=== PATIENT | female | born 1975 | race Caucasian/White ===

== ENCOUNTER 2021-03-21 00:15 | Day surgery (SDC) | payer BC, SELFPAY ==
[2021-03-11 15:06] VITALS: BMI 53.1
[2021-03-21] VITALS (14 sets, daily range): BP systolic 133–148; BP diastolic 78–98; PULSE 58–72; RESP 14–20; TEMP 36.2; O2SAT 92–99
--- NOTE | 2021-03-21 10:22 | PM.HPGS ---
History of Present Illness History of Present Illness Consent: Risks, benefits, and alternatives have been discussed and questions answered. Patient agrees to proceed with procedure. Chief complaint: stress incontinence Narrative: Mehreen Christianson is a 45 year old female with complaints of leaking urine for a while with laughing and activity Review of Systems Review of Systems: Narrative: negative All systems reviewed & are unremarkable except as noted in HPI and below PMFSH Past Medical History Medical History (Updated 03/21/21 @ 10:27 by Nomi Hammond MD) GSI (genuine stress incontinence), female Social History Social History Smoking packs per day: 1 Smoking cigarettes per day: 20.0 Years smoked: 20 Smoking pack-years: 20.00 Smoking status: Former smoker Tobacco type: cigarettes Additional smoking assessment comments: QUIT 2011 Spiritual care concerns: No Meds Home Medications and Allergies Home Medications Medication Instructions Recorded Confirmed Type buspirone 15 mg PO BID 03/11/21 03/11/21 History cetirizine [Zyrtec] 10 mg PO DAILY 03/11/21 03/11/21 History citalopram 40 mg PO DAILY 03/11/21 03/11/21 History estradiol 1 mg PO DAILY 03/11/21 03/11/21 History zolpidem 5 mg PO HS 03/11/21 03/11/21 History Allergies Allergy/AdvReac Type Severity Reaction Status Date / Time erythromycin base Allergy Hives Verified 03/11/21 15:03 Sulfa (Sulfonamide Allergy Hives Verified 03/11/21 15:03 Antibiotics) Exam Const: General: cooperative Resp: Auscultation: clear to auscultation bilaterally Cardio: Rate: regular rate Rhythm: regular rhythm GI: Auscultation: normal bowel sounds Assessment and Plan Assessment and plan (1) GSI (genuine stress incontinence), female: Code(s): N39.3 - Stress incontinence (female) (male) Status: Acute Assessment and Plan: scheduled for a Transobturator taping with cystoscopy. Risk and benefits reviewed in detail with patient.
[2021-03-21] MEDS: LACTATED RINGERS 1,000 ML 30 ML IV CONT ×2 (10:44→12:49)
[2021-03-21] MEDS: ACETAMINOPHEN 500 MG TABLET 1000 MG PO (10:49)
--- NOTE | 2021-03-21 10:49 | WPDANESEPPF ---
Anes - Initial Pre Proc Eval Procedure: Operation Date: 03/21/21 12:00 Proposed Procedures p Possible Anterior Repair, - Nomi Hammond MD s Trans Obturator Taping - Nomi Hammond MD Date/Time: 03/21/21 10:49 Surgeon: Nomi Hammond MD Pre Op Diagnosis: stress incontinence Patient Data Age: 45 Gender: F Height: 1.6 m Weight: 136.2 kg Allergies Allergy/AdvReac Type Severity Reaction Status Date / Time erythromycin base Allergy Intermediate Hives Verified 03/21/21 10:40 Sulfa (Sulfonamide Allergy Intermediate Hives Verified 03/21/21 10:40 Antibiotics) Home Medications Medication Instructions Recorded Confirmed Type buspirone 15 mg PO BID 03/11/21 03/21/21 History cetirizine [Zyrtec] 10 mg PO DAILY 03/11/21 03/21/21 History citalopram 40 mg PO DAILY 03/11/21 03/21/21 History estradiol 1 mg PO DAILY 03/11/21 03/21/21 History zolpidem 5 mg PO HS 03/11/21 03/21/21 History Patient hx anesthesia problems: post op nausea/vomiting Family hx anesthesia problems: none PMFSH Past Medical History Medical History (Updated 03/21/21 @ 10:27 by Nomi Hammond MD) GSI (genuine stress incontinence), female Social History Social History Smoking packs per day: 1 Smoking cigarettes per day: 20.0 Years smoked: 20 Smoking pack-years: 20.00 Smoking status: Former smoker Tobacco type: cigarettes Additional smoking assessment comments: QUIT 2011 Spiritual care concerns: No Anes - Eval Final PreProcedure Day of Procedure 03/21/21 10:49 Patient weight: super morbidly obese Heart: regular rate and rhythm Lungs: clear to auscultation Airway: Mallampati scale class III Neurological: alert and oriented Last oral intake: >/= 8 hours ASA classification: III Emergent: no Anesthetic plan: proceed Anesthesia type and monitoring: general LMA and standard monitoring Informed Consent: The patient's anesthetic plan and its attendant risks and benefits were discussed with the patient/family/POA. Questions were solicited and answers provided to the satisfaction of the patient/family/POA.
--- NOTE | 2021-03-21 10:50 | WPDHPUPDATE1 ---
History and Physical Update Update Date/Time: 03/21/21 10:50 History and Physical has been reviewed, including an updated exam of the patient. There are NO changes in the patient's condition. Risks, benefits, and alternatives have been discussed and questions answered. Patient agrees to proceed with procedure.
[2021-03-21] MEDS: KETOROLAC 15 MG/ML VIAL (*BKC) IV PUSH (10:51)
[2021-03-21] MEDS: SCOPOLAMINE 1.5 MG PATCH TRANSDERM (10:53)
[2021-03-21] MEDS: ceFAZolin 3 GM/D5W 100 ML 100 ML IVPB (10:54)
[2021-03-21] MEDS: GENTAMICIN SULFATE INJ 430 MG in DEXTROSE 5% 100 ML 100 MG IVPB (11:12)
[2021-03-21] MEDS: LIDO 1%/EPINEPHRINE/PF 1:200,000 30 ML VIAL 10 ML XX (11:27)
[2021-03-21] MEDS: diphenhydrAMINE HCl INJ 50 MG/ML VIAL 12.5 MG IV PUSH ×2 (12:15→12:33)
[2021-03-21] MEDS: HALOPERIDOL LACTATE 5 MG/ML VIAL IV PUSH (13:01)
--- NOTE | 2021-03-21 13:56 | SUR.PHASEI ---
PT MOVED TO RECLINER WITH MIN ASSISTANCE. DENIED INCREASE IN NAUSEA. NO EMESIS.
--- NOTE | 2021-03-21 14:50 | W.PM.PROC2 ---
Procedure Note - Detailed Date of Procedure 03/21/21 Pre-op Diagnosis stress incontinence Post-op Diagnosis same Procedure Performed Transobturator taping with cystoscopy Surgeon Nomi Hammond MD Anesthesia general Findings intact bladder and urthera with bilateral ureter jets. Description of Procedure Patient was taken to the operating room and placed in a dorsal lithotomy position. The patient was prepared and draped in a normal sterile fashion. Eric catheter was placed into the bladder and the bladder was drained for 100cc. 2 Allis clamps were placed along the anterior vaginal wall beginning 1cm below the urethra and 3cm apart vertically a 2cm incision was made between Allis clamps on anterior vaginal mucosa in the periurethral tissue was dissected with the Metzenbaum scissors and blunt dissection to the level of the pubic bone on either side the midline. The obturator foramen on the right portions of the vagina well palpated bilaterally and injected with 1% lidocaine with epinephrine. And marked with a sterile marker. Stab incision was made in both areas. The obturator device hook was then introduced through the outer obturator foramen through the membrane entering alongside the bladder and urethra pushing the bladder and urethra out of the way and exiting through the vagina. The same procedure occurred on the left side. Cystoscope was performed with the 70 degree scope and the bladder dome was noted the posterior portion of the bladder with no visual suture noted. the obturator devices were manipulated and no areas of punctation were noted in the bladder garcia bilaterally. And there were bilateral ureteral jets noted with an intact urethra. The cystoscope was removed. The vaginal taping was attached to the obturator removed and pulled through under proper tension with spacing with Lawson scissors. the vaginal mucosa was then closed with 2 0 Vicryl suture in a running locked fashion. The stab wound incisions were covered with surgical glue. Estimated Blood Loss -50.0 Urine Output -50.0 Drains Yes Packing No Pathology none sent Complications None Condition stable Disposition PACU
== END 2021-03-21 15:18 | disposition home or self-care (01) ==
PROVIDERS: PCP Nurse Practitioner Family; Visit Provider Obstetrics & Gynecology
PROC: (CPT 57288; 2021-03-21 12:00)
DX: N39.3 Stress incontinence (female) (male) (principal); Z87.891 Personal history of nicotine dependence; E66.01 Morbid (severe) obesity due to excess calories; Z68.43 Body mass index [BMI] 50.0-59.9, adult
CPT/HCPCS: 57288; A9270; C1771; J0690; J1100; J1200; J1580; J1630; J1885; J2250; J2405; J2704; J3010; J7030; J7120

== ENCOUNTER 2021-05-26 19:10 | Emergency (ER) | payer BC, SELFPAY ==
[2021-05-26 19:19] VITALS: BP 168/109; PULSE 97; RESP 16; TEMP 36.6; O2SAT 99
--- NOTE | 2021-05-26 19:49 | ED.FEMALEGU ---
HPI - Female Genitourinary General Chief complaint: Urogenital-Female Stated complaint: POS UTI Time Seen by Provider: 05/26/21 19:39 Source: patient and RN notes reviewed Mode of arrival: ambulatory Limitations: no limitations History of Present Illness HPI Narrative: Patient presents today complaining of gross hematuria at home starting this morning. Denies hematuria, frequency, abdominal pain, back pain. Patient had a fever up to 102 on and off this week and had a negative Covid test. She also had a cough to accompany this. She does not currently have a fever. She had a bladder mesh surgery approximately 2 months ago. Related Data Home Medications Medication Instructions Recorded Confirmed buspirone 15 mg PO BID 03/11/21 03/21/21 cetirizine [Zyrtec] 10 mg PO DAILY 03/11/21 03/21/21 citalopram 40 mg PO DAILY 03/11/21 03/21/21 estradiol 1 mg PO DAILY 03/11/21 03/21/21 zolpidem 5 mg PO HS 03/11/21 03/21/21 Allergies Allergy/AdvReac Type Severity Reaction Status Date / Time erythromycin base Allergy Intermediate Hives Verified 03/21/21 10:40 Sulfa (Sulfonamide Allergy Intermediate Hives Verified 03/21/21 10:40 Antibiotics) Rcqggrv-Pro-Zlz Reductase Allergy Muscle Verified 05/26/21 19:50 Inhibitor Spasms Review of Systems Review of Systems: CONSTITUTIONAL: Denies body aches, fever, chills, or sweats. EYES: Denies visual changes, redness, or discharge. ENT: Denies rhinorrhea, congestion, sore throat, or otalgia. CARDIOVASCULAR: Denies chest pain, palpitations, or edema. RESPIRATORY: Denies cough or dyspnea. GASTROINTESTINAL: Denies abdominal pain, nausea, vomiting, or diarrhea. GENITOURINARY: Denies dysuria. + Hematuria SKIN: Denies rash, itching, or wounds. MUSCULOSKELETAL: Denies back pain, joint pain, or myalgia. NEUROLOGIC: Denies headache, numbness, tingling, or weakness. PSYCH: Denies depression or anxiety. [facility] Past Medical History Medical History (Updated 05/26/21 @ 19:51 by Elise Kwong, AIRCRA[employer] MAINTENA[employer]CE ENG[employer], BC) GSI (genuine stress incontinence), female Social History Social History Smoking packs per day: 1 Smoking cigarettes per day: 20.0 Years smoked: 20 Smoking pack-years: 20.00 Smoking status: Former smoker Tobacco type: cigarettes Additional smoking assessment comments: QUIT 2011 Spiritual care concerns: No Comments At time of signature, I have reviewed and agree with nursing past medical, surgical, social and family history unless otherwise noted. Please see nursing chart for further information. There is no relevant family history pertinent to the presenting complaint Exam Narrative: GENERAL: Well-appearing, well-nourished, and in no acute distress. HEAD: Normocephalic, atraumatic. EYES: EOMI. No redness or drainage. Conjunctivae normal. ENT: Mucous membranes pink and moist. NECK: Normal AROM. CHEST: No respiratory distress. Clear to auscultation. HEART: Regular rate and rhythm. No murmur appreciated. Normal peripheral pulses. ABDOMEN: Soft, nondistended, normal active bowel sounds.+ Mild suprapubic tenderness.-CVAT MUSCULOSKELETAL: No bony tenderness. EXTREMITIES: Normal range of motion. No edema. SKIN: Warm, dry, no rash. Capillary refill normal. Normal skin turgor. NEURO: No focal deficits. Alert and oriented x3. Gait steady. PSYCH: Normal affect. No signs of depression or anxiety. Course Vital Signs Vital signs: Vital Signs Temperature 97.8 F 05/26/21 19:19 Pulse Rate 97 05/26/21 19:19 Respiratory Rate 16 05/26/21 19:19 Blood Pressure 168/109 H 05/26/21 19:19 Pulse Oximetry 99 05/26/21 19:19 Temperature 97.8 F 05/26/21 19:19 Pulse Rate 97 05/26/21 19:19 Respiratory Rate 16 05/26/21 19:19 Blood Pressure 168/109 H 05/26/21 19:19 Pulse Oximetry 99 05/26/21 19:19 Reviewed. Pt has been instructed to follow up with her PCP regarding her elevated blood pressure today.
== END 2021-05-26 19:52 | disposition home or self-care (01) ==
PROVIDERS: Emergency Provider Nurse Practitioner; PCP Nurse Practitioner Family
DX: N30.01 Acute cystitis with hematuria (principal); N80.9 Endometriosis, unspecified
CPT/HCPCS: 81003; 87086; 99213; G0463

== ENCOUNTER 2021-05-27 14:16 | Emergency (ER) | payer BC, SELFPAY ==
[2021-05-27 14:25] VITALS: BP 132/82; PULSE 72; RESP 16; TEMP 36.2; O2SAT 100
--- NOTE | 2021-05-27 14:35 | ED.GENADULT ---
HPI - General Adult General Chief complaint: GI Bleed Stated complaint: rectal bleeding Source: patient and family (Spouse) Mode of arrival: ambulatory Limitations: no limitations Related Data Home Medications Medication Instructions Recorded Confirmed buspirone 15 mg PO BID 03/11/21 03/21/21 cetirizine [Zyrtec] 10 mg PO DAILY 03/11/21 03/21/21 citalopram 40 mg PO DAILY 03/11/21 03/21/21 estradiol 1 mg PO DAILY 03/11/21 03/21/21 zolpidem 5 mg PO HS 03/11/21 03/21/21 Allergies Allergy/AdvReac Type Severity Reaction Status Date / Time erythromycin base Allergy Intermediate Hives Verified 03/21/21 10:40 Sulfa (Sulfonamide Allergy Intermediate Hives Verified 03/21/21 10:40 Antibiotics) Lcqevkd-Tle-Zfg Reductase Allergy Muscle Verified 05/26/21 19:50 Inhibitor Spasms Review of Systems Review of Systems: Denies past abdominal medical history. Pertinent negatives fever, chills, sweats, malaise, poor p.o. intake, change in appetite, recent weight loss, lymphadenopathy, headache, sore throat, dizziness, LOC, urinary sxs, back/flank pain, extremity paresthesias, nausea, vomiting, diarrhea, constipation, belching, bloating, dry mouth, heartburn, jaundice, vomiting blood, and testicular pain. [facility] Past Medical History Medical History (Updated 05/27/21 @ 14:37 by CARLOS Sinha, ) Anxiety Depression GSI (genuine stress incontinence), female Seasonal allergies UTI (urinary tract infection) due to Enterococcus Social History Social History Smoking packs per day: 1 Smoking cigarettes per day: 20.0 Years smoked: 20 Smoking pack-years: 20.00 Smoking status: Former smoker Tobacco type: cigarettes Additional smoking assessment comments: QUIT 2011 Spiritual care concerns: No Course Vital Signs Vital signs: Vital Signs Temperature 97.1 F L 05/27/21 14:25 Pulse Rate 72 05/27/21 14:25 Respiratory Rate 16 05/27/21 14:25 Blood Pressure 132/82 05/27/21 14:25 Pulse Oximetry 100 05/27/21 14:25 Temperature 97.1 F L 05/27/21 14:25 Pulse Rate 72 05/27/21 14:25 Respiratory Rate 16 05/27/21 14:25 Blood Pressure 132/82 05/27/21 14:25 Pulse Oximetry 100 05/27/21 14:25 Medical Decision Making Vital Signs Vital Signs: Vital Signs Temperature 97.1 F L 05/27/21 14:25 Pulse Rate 72 05/27/21 14:25 Respiratory Rate 16 05/27/21 14:25 Blood Pressure 132/82 05/27/21 14:25 Pulse Oximetry 100 05/27/21 14:25 Temperature 97.1 F L 05/27/21 14:25 Pulse Rate 72 05/27/21 14:25 Respiratory Rate 16 05/27/21 14:25 Blood Pressure 132/82 05/27/21 14:25 Pulse Oximetry 100 05/27/21 14:25 Discharge Plan Discharge Prescriptions: No Action nitrofurantoin monohyd/m-cryst [Macrobid] 100 mg capsule 100 mg PO Q12H 7 Days Qty: 14 RF: 0 citalopram 40 mg tablet 40 mg PO DAILY RF: 0 cetirizine [Zyrtec] 10 mg Tablet 10 mg PO DAILY RF: 0 estradiol 1 mg tablet 1 mg PO DAILY RF: 0 zolpidem 5 mg tablet 5 mg PO HS RF: 0 buspirone 15 mg tablet 15 mg PO BID RF: 0 hydrocodone-acetaminophen 5-325 mg tablet 1 tablet PO Q4H PRN (Reason: pain) Qty: 20 RF: 0
--- NOTE | 2021-05-27 14:39 | ED.GENADULT ---
HPI - General Adult General Chief complaint: GI Bleed Stated complaint: rectal bleeding Source: patient and family (spouse) Mode of arrival: ambulatory Limitations: no limitations History of Present Illness HPI narrative: Patient is a 45-year-old female who presents to the urgent care via POV for evaluation of a rectal bleed that began yesterday. She reports 4-5 bloody stools. She initially thought her symptoms were caused from UTI prompting yesterday's visit. She was treated with Macrobid at that time. Symptoms have not improved. Nothing improves or worsens symptoms. She does have history of external hemorrhoids. Denies an abdominal history. Related Data Home Medications Medication Instructions Recorded Confirmed buspirone 15 mg PO BID 03/11/21 03/21/21 cetirizine [Zyrtec] 10 mg PO DAILY 03/11/21 03/21/21 citalopram 40 mg PO DAILY 03/11/21 03/21/21 estradiol 1 mg PO DAILY 03/11/21 03/21/21 zolpidem 5 mg PO HS 03/11/21 03/21/21 Allergies Allergy/AdvReac Type Severity Reaction Status Date / Time erythromycin base Allergy Intermediate Hives Verified 03/21/21 10:40 Sulfa (Sulfonamide Allergy Intermediate Hives Verified 03/21/21 10:40 Antibiotics) Pmbcgcz-Fnj-Fmc Reductase Allergy Muscle Verified 05/26/21 19:50 Inhibitor Spasms Review of Systems Review of Systems: Denies chronic diarrhea, chronic constipation, obesity, straining her bowel movements, sitting for long periods of time on the toilet, anal intercourse, low fiber diet, and . Patient also denies history of internal, and thrombosed hemorrhoids. Pertinent negatives: fever, chills, sweats, change in appetite, poor p.o. intake, recent weight loss, malaise, abdominal pain, nausea, vomiting, diarrhea, belching, bloating, urinary sxs, STD exposure, heartburn, paresthesias, dizziness, headache, hematemesis, anal-genital pruritus, rectal swelling, painful bowel movements, shortness of breath, chest pain, and heart palpitations/murmurs. PMF Past Medical History Medical History Anxiety Depression GSI (genuine stress incontinence), female Seasonal allergies UTI (urinary tract infection) due to Enterococcus Social History Social History Smoking packs per day: 1 Smoking cigarettes per day: 20.0 Years smoked: 20 Smoking pack-years: 20.00 Smoking status: Former smoker Tobacco type: cigarettes Additional smoking assessment comments: QUIT 2011 Spiritual care concerns: No Exam Narrative: GENERAL: Well-appearing, well-nourished, and in no acute distress. HEAD: Normocephalic, atraumatic. NECK: Supple. No lymphadenopathy or nuchal rigidity. CHEST: Lung sounds are clear to auscultation in bilateral lung yeung. No respiratory distress. HEART: Regular rate and rhythm. No murmur, gallop, or rub heard. ABDOMEN: Soft, non-tender, non-distended, normal active bowel sounds in all quadrants. No guarding. No rebound tenderness. No pulsatile or palpable abdominal mass(es). No CVAT. Rectal exam is positive for external hemorrhoids. No evidence of pain, inflammation, or bleeding of external hemorrhoids. : Bladder non-distended, non-tender EXTREMITIES: Normal range of motion. No edema. SKIN: Warm, dry, no rash. No skin color changes. Excellent turgor. NEURO: No focal deficits. Alert and oriented x3. SPECIAL OBSERVATIONS: Smiling. No evidence of discomfort. Course Vital Signs Vital signs: Vital Signs Temperature 97.1 F L 05/27/21 14:25 Pulse Rate 72 05/27/21 14:25 Respiratory Rate 16 05/27/21 14:25 Blood Pressure 132/82 05/27/21 14:25 Pulse Oximetry 100 05/27/21 14:25 Temperature 97.1 F L 05/27/21 14:25 Pulse Rate 72 05/27/21 14:25 Respiratory Rate 16 05/27/21 14:25 Blood Pressure 132/82 05/27/21 14:25 Pulse Oximetry 100 05/27/21 14:25 Due to an elevated blood pressure, I h
== END 2021-05-27 15:03 | disposition short-term general hospital (02) ==
LOC: EXPGLEN 14:18
PROVIDERS: Emergency Provider Nurse Practitioner Family; PCP Nurse Practitioner Family
DX: K92.2 Gastrointestinal hemorrhage, unspecified (principal); F32.9 Major depressive disorder, single episode, unspecified; F41.9 Anxiety disorder, unspecified; Z87.891 Personal history of nicotine dependence
CPT/HCPCS: 99212; G0463

== ENCOUNTER 2021-05-27 15:15 | Emergency (ER) | payer BC, SELFPAY ==
[2021-05-27] VITALS (21 sets, daily range): BP systolic 116–168; BP diastolic 77–105; PULSE 69–84; RESP 16–22; TEMP 36.4; O2SAT 97–100
--- NOTE | ~2021-05-27 | CT_ITS ---
EXAMINATION: CT abdomen pelvis w con DATE: 05/27/2021 17:54 INDICATION: Left lower quadrant abdominal pain. Blood in stool. TECHNIQUE: Computed tomography (CT) of the abdomen and pelvis was performed with 100 mL Omnipaque 350 intravenous contrast. Automated exposure control and iterative reconstruction technique were employe d. The dose-length product was 1502.36 mGy-cm. COMPARISON: None. FINDINGS: The visualized portions of the lung bases demonstrate minimal atelectasis. No pleural effus ion. The heart size is normal. No pericardial effusion. There is a small sliding hiatal hernia. The l iver is normal. There are changes of cholecystectomy. The spleen, pancreas, adrenal glands, and kidne ys are normal. There are no dilated loops of bowel. There are no dilated loops of bowel. There is mil d fat stranding between the sigmoid colon and uterus. The appendix is not visualized. There are no pa thologically enlarged lymph nodes. There is no free intraperitoneal fluid. There is mild thoracolumba r spondylosis. IMPRESSION: 1. Mild fat stranding between the sigmoid colon and uterus, likely chronic diverticulitis. Reviewed, dictated and finalized at location A. IMPRESSION: 1. Mild fat stranding between the sigmoid colon and uterus, likely chronic dive rticulitis.
[2021-05-27 15:44] LABS: INR 0.9; Prothrombin Time 12.5 Seconds (11.1-14.7)
[2021-05-27 15:45] LABS: Partial Thromboplastin Time 32.6 SECONDS (22.3-36.8)
[2021-05-27 15:49] LABS: Basophils Percent Auto 0.5 % (0.2-1.2); Eosinophils Absolute Auto 0.1 K/mm3 (0-0.3); Eosinophils Percent Auto 1.2 % (0-4.4); Hematocrit 39.5 % (37.0-47.0); Hemoglobin 13.2 g/dL (12.0-15.0); Immature Granulocyte Absolute 0.12 K/mm3 (0.00-0.031); Immature Granulocyte Percent A 1.5 % (0-0.5); Lymphocytes Absolute Auto 1.99 K/mm3 (0.9-3.2); Lymphocytes Percent Auto 24.5 % (18.3-44.2); Mean Corpuscular HGB Conc 33.4 g/dl (32-36); Mean Corpuscular Hemoglobin 29.1 pg (26-34); Mean Corpuscular Volume 87.2 fl (80-100); Mean Platelet Volume 9.9 fl (7.4-10.4); Monocytes Absolute Auto 0.6 K/mm3 (0.1-0.6); Monocytes Percent Auto 7.5 % (2.6-8.5); Neutrophils Absolute Auto 5.3 K/mm3 (1.3-6.7); Neutrophils Percent Auto 64.8 % (45.5-73.1); Platelet Count Result 221 k/mm3 (150-375); Red Blood Count 4.53 M/mm3 (4.2-5.4); Red Cell Distribution Width 12.3 % (11.5-14.5); White Blood Count 8.1 K/mm3 (4.5-10.0)
[2021-05-27 15:51] LABS: Alanine Aminotransferase 19 U/L (4-35); Albumin Level 4.3 g/dL (3.5-5.1); Alkaline Phosphatase 97 U/L (38-126); Anion Gap 5 mmol/L (8-16); Aspartate Amino Transferase 30 U/L (14-36); Bilirubin,Total 0.8 mg/dL (0.2-1.3); Blood Urea Nitrogen 9 mg/dL (7-17); Calcium 9.2 mg/dL (8.4-10.2); Carbon Dioxide 24 mmol/L (22-30); Chloride 106 mmol/L (98-107); Estimated CRCL calculation 110 ml/min; Estimated Glomerular Filt Rate > 60; Glucose 98 mg/dL (65-110); Potassium 3.9 mmol/L (3.4-5.0); Sodium 135 mmol/L (137-145)
--- NOTE | 2021-05-27 17:08 | ED.GIBLEED ---
HPI - GI Bleed General Chief complaint: GI Bleed Stated complaint: GI Bleed Time Seen by Provider: 05/27/21 16:44 Source: patient Mode of arrival: ambulatory Limitations: no limitations History of Present Illness HPI Narrative: This is a 45 year old female that presents to the ER for rectal bleeding. Ongoing since yesterday. Does report history of hemorrhoids. Reports some mild left lower quadrant pain. Denies fever, vomiting, or diarrhea. Related Data Home Medications Medication Instructions Recorded Confirmed buspirone 15 mg PO BID 03/11/21 03/21/21 cetirizine [Zyrtec] 10 mg PO DAILY 03/11/21 03/21/21 citalopram 40 mg PO DAILY 03/11/21 03/21/21 estradiol 1 mg PO DAILY 03/11/21 03/21/21 zolpidem 5 mg PO HS 03/11/21 03/21/21 Allergies Allergy/AdvReac Type Severity Reaction Status Date / Time erythromycin base Allergy Intermediate Hives Verified 03/21/21 10:40 Sulfa (Sulfonamide Allergy Intermediate Hives Verified 03/21/21 10:40 Antibiotics) Sxjtotb-Gtn-Zrs Reductase Allergy Muscle Verified 05/26/21 19:50 Inhibitor Spasms Review of Systems Review of Systems: CONSTITUTIONAL: Denies fever GASTROINTESTINAL: Reports abdominal pain. Denies nausea, vomiting, or diarrhea. GENITOURINARY: Denies dysuria All systems reviewed & are unremarkable except as noted in HPI and below PMFSH Past Medical History Medical History Anxiety Depression GSI (genuine stress incontinence), female Seasonal allergies UTI (urinary tract infection) due to Enterococcus Social History Social History Smoking packs per day: 1 Smoking cigarettes per day: 20.0 Years smoked: 20 Smoking pack-years: 20.00 Smoking status: Former smoker Tobacco type: cigarettes Additional smoking assessment comments: QUIT 2012 Spiritual care concerns: No Exam Narrative: GENERAL: Well-appearing, obese, and in no acute distress. HEAD: Normocephalic, atraumatic. EYES: EOMI. CHEST: Clear to auscultation. No respiratory distress. No wheezes rales or rhonchi HEART: Regular rate and rhythm. No murmur heard. Normal peripheral pulses. ABDOMEN: Soft, nondistended, normal active bowel sounds. Tender to palpation in the left lower quadrant, without guarding. No CVA tenderness EXTREMITIES: Normal range of motion. No edema. SKIN: Warm, dry, no rash. NEURO: No focal deficits. Alert and oriented x3. PSYCH: Normal mood and affect Course Vital Signs Vital signs: Vital Signs Temperature 97.6 F 05/27/21 15:17 Pulse Rate 75 05/27/21 15:17 Respiratory Rate 16 05/27/21 15:17 Blood Pressure 168/105 H 05/27/21 15:17 Pulse Oximetry 97 05/27/21 15:17 Temperature 97.6 F 05/27/21 15:17 Pulse Rate 78 05/27/21 19:19 Respiratory Rate 19 05/27/21 19:19 Blood Pressure 130/97 H 05/27/21 19:22 Pulse Oximetry 99 05/27/21 19:19 MDM - GI Bleed MDM Narrative Medical decision making narrative: Patient presents the emergency department for rectal bleeding noted since yesterday. She is afebrile and nontoxic-appearing. Vitals are stable. CBC and metabolic panel without concerning findings CT scan abdomen and pelvis shows mild fat stranding between the sigmoid colon and uterus, likely diverticulitis. Patient will be started on oral antibiotics. She was instructed to follow-up with her primary care doctor. She is stable and felt appropriate for further outpatient evaluation. She was given warnings to return to the ER Lab Data Attestation: I reviewed the patient's lab results. Result diagrams: 05/27/21 15:26 05/27/21 15:26 Labs: Lab Results 05/27/21 05/27/21 05/27/21 Range/Units 15:26 15:26 15:26 WBC 8.1 (4.5-10.0) K/mm3 RBC 4.53 (4.2-5.4) M/mm3 Hgb 13.2 (12.0-15.0) g/dL Hct 39.5 (37.0-47.0) % MCV 87.2 (80-100) fl MCH 29.1 (26-34) pg MCHC 33.4
--- NOTE | 2021-05-27 19:20 | PC.NURSE ---
assumed care of pt at this time. Report from Karen SHARMA.
[2021-05-27] MEDS: AMOXICILLIN/CLAVULANATE K 875-125 MG TAB 1 TABLET PO (20:19)
== END 2021-05-27 20:20 | disposition home or self-care (01) ==
PROVIDERS: Emergency Provider Emergency Medicine; PCP Nurse Practitioner Family
DX: K57.92 Diverticulitis of intestine, part unspecified, without perforation or abscess without bleeding (principal); Z87.891 Personal history of nicotine dependence; F41.9 Anxiety disorder, unspecified; F32.9 Major depressive disorder, single episode, unspecified
CPT/HCPCS: 36415; 74177; 80053; 85025; 85610; 85730; 86850; 86900; 86901; 99284; A9270; Q9967

== ENCOUNTER 2022-04-05 13:38 | Emergency (ER) | payer BC, SELFPAY ==
--- NOTE | ~2022-04-05 | XR_ITS ---
EXAM: XR ribs LT 2V w CXR 2V DATE: 04/05/2022 15:45 HISTORY: left lower rib pain after falling into recycle bin . COMPARISON: None available. FINDINGS: Lungs are clear. Unremarkable cardiomediastinal silhouette. Cholecystectomy clips. Normal m ineralization. No fracture or dislocation. No lytic or blastic lesion. Joint spaces are maintained. N o erosion or periosteal change. Soft tissues within normal limits. IMPRESSION: No acute osseous finding in the left ribs. Reviewed, dictated and finalized at location K.
[2022-04-05 14:23] VITALS: BP 136/80; PULSE 81; RESP 16; TEMP 36.8; O2SAT 99
--- NOTE | 2022-04-05 15:17 | ED.ABDPAIN ---
HPI - Abdominal Pain General Chief Complaint: Abdominal Pain Stated Complaint: left side pain Time Seen by Provider: 04/05/22 15:17 Source: patient, RN notes reviewed and old records reviewed Mode of arrival: ambulatory Limitations: no limitations History of Present Illness HPI narrative: 46-year-old female presents accompanied by spouse to express care with complaints of left lateral abdomen lower rib region discomfort since . She reports they went to put their cardboard in a dumpster and in the process her watch fell in to the dumpster and she leaned over the metal bar trying to get the watch out and has had pain to above area. Patient has no bruising to area or any shortness of breath. patient has palpable pain to area. MD elicited complaint: other (left lateral abdomen and rib region) Onset (ago): day(s) (2) Pain scale (0-10): 5 Treatments prior to arrival: NSAIDs and other (Tylenol) Related Data Home Medications Medication Instructions Recorded Confirmed buspirone 15 mg tablet 15 mg PO BID 03/11/21 03/21/21 cetirizine 10 mg tablet (Zyrtec) 10 mg PO DAILY 03/11/21 03/21/21 citalopram 40 mg tablet 40 mg PO DAILY 03/11/21 03/21/21 estradiol 1 mg tablet 1 mg PO DAILY 03/11/21 03/21/21 zolpidem 5 mg tablet 5 mg PO HS 03/11/21 03/21/21 lisinopril 5 mg tablet tablet 04/05/22 ihdmlkghaglf-Ly-ukqg-minerals 18 tablet PO 04/05/22 mg-0.4 mg tablet omeprazole 10 mg capsule,delayed 10 mg PO DAILY 04/05/22 04/05/22 release Allergies Allergy/AdvReac Type Severity Reaction Status Date / Time erythromycin base Allergy Intermediate Hives Verified 04/05/22 14:15 Sulfa (Sulfonamide Allergy Intermediate Hives Verified 04/05/22 14:15 Antibiotics) Fvvyuuv-XCJ-HiY Reductase Allergy Muscle Verified 04/05/22 14:15 Inhibitor Spasms [Zmwaity-Otn-Azl Reductase Inhibitor] Review of Systems Review of Systems: CONSTITUTIONAL: Denies fever, chills, or sweats. EYES: Denies visual changes, redness, or discharge. ENT: Denies rhinorrhea, congestion, sore throat, or otalgia. CARDIOVASCULAR: Denies chest pain, palpitations, or edema. RESPIRATORY: Denies cough or dyspnea. GASTROINTESTINAL: Positive lateral abdominal pain and the left rib pain, nausea, vomiting, or diarrhea. GENITOURINARY: Denies dysuria or hematuria. SKIN: Denies rash or itching. MUSCULOSKELETAL: Denies back pain, joint pain, or myalgia. NEUROLOGIC: Denies headache, numbness, or weakness. PSYCHIATRIC: Positive history of anxiety or depression. All systems reviewed & are unremarkable except as noted in HPI and below PMFSH Past Medical History Medical History Anxiety Depression GSI (genuine stress incontinence), female Hypertension Seasonal allergies UTI (urinary tract infection) due to Enterococcus Surgical History Surgical History (Updated 04/05/22 @ 15:34 by Estelita Michael NP) H/O: hysterectomy Hx of appendectomy Hx of cholecystectomy Hx of hemorrhoidectomy Social History Social History Smoking packs per day: 1 Smoking cigarettes per day: 20.0 Years smoked: 20 Smoking pack-years: 20.00 Smoking status: Former smoker Tobacco type: cigarettes Additional smoking assessment comments: QUIT 2011 Spiritual care concerns: No Comments At time of signature, agree with nursing past medical, surgical, social and family history. There is no relevant family history pertinent to the presenting complaint Exam Narrative: GENERAL: Well-appearing, well-nourished, avidly obese and in no acute distress. HEAD: Normocephalic, atraumatic. EYES: PERRLA and EOMI. ENT: Nares clear, no rhinorrhea or epistaxis. Mucous membranes moist. TMs normal good light reflex throat pink no lesions or exudates NECK: Supple. No lymphadenopathy CHEST: Clear to auscultation. No respiratory distress. SaO2 99% on room air tender left rib area HE
== END 2022-04-05 16:28 | disposition home or self-care (01) ==
PROVIDERS: Emergency Provider Registered Nurse; PCP Nurse Practitioner Family
DX: S30.1XXA Contusion of abdominal wall, initial encounter (principal); S20.212A Contusion of left front wall of thorax, initial encounter; X50.9XXA Other and unspecified overexertion or strenuous movements or postures, initial encounter; I10 Essential (primary) hypertension; Z87.891 Personal history of nicotine dependence; F41.9 Anxiety disorder, unspecified; F32.A Depression, unspecified
CPT/HCPCS: 71046; 71100; 99213; G0463

== ENCOUNTER → 2022-10-16 14:53 | Outpatient (CLI) | payer BC, SELFPAY ==
--- NOTE | ~2022-10-16 | MM_ITS ---
EXAMINATION: MM screening marci BI w vyette HISTORY: Screening mammogram TECHNIQUE: Craniocaudal and mediolateral oblique 3-D tomosynthesis images were obtained and synthetic 2-D images were generated. CAD analysis was submitted and interpreted. COMPARISON: No prior mammogram is available for comparison at this institution. BREAST PARENCHYMAL COMPOSITION: There are scattered areas of fibroglandular density. FINDINGS: No suspicious mass, calcification, or architectural distortion are identified in either dirk ast to suggest malignancy. IMPRESSION: 1. No mammographic evidence of malignancy. 2. Recommend routine screening mammography in one year. BI-RADS Category 1: Negative Reviewed, dictated and finalized at location A. P TEACHER
== END ==
PROVIDERS: PCP Nurse Practitioner Family; Visit Provider Nurse Practitioner
DX: Z12.31 Encounter for screening mammogram for malignant neoplasm of breast (principal)
CPT/HCPCS: 77063; 77067

== ENCOUNTER 2022-11-06 06:25 | Emergency (ER) | payer BC, SELFPAY ==
--- NOTE | ~2022-11-06 | US_ITS ---
EXAMINATION: US pelvic complete DATE: 11/06/2022 12:40 INDICATION: Vaginal bleeding and pelvic pain, history of hysterectomy TECHNIQUE: Multiple transabdominal and endovaginal sonographic images of the pelvis were obtained. COMPARISON: CT, 05/27/2021 FINDINGS: The uterus is surgically absent. The ovaries are not visualized however no adnexal abnormal ity is seen. There is no free fluid in the pelvis. IMPRESSION: 1. No sonographic correlate for the patient's symptoms. Reviewed, dictated and finalized at location A. INE OPERATOR CANE CUTTER
[2022-11-06 06:31] VITALS: BP 114/69; PULSE 76; RESP 17; TEMP 36.6; O2SAT 98
[2022-11-06 09:32] VITALS: BP 142/93; PULSE 78; RESP 14; TEMP 36.2; O2SAT 100
--- NOTE | 2022-11-06 10:11 | ED.FEMALEGU ---
HPI - Female Genitourinary General Chief complaint: Vaginal Bleeding Stated complaint: vaginal bleeding Time Seen by Provider: 11/06/22 09:49 History of Present Illness HPI Narrative: 47-year-old female with a history of hysterectomy here for evaluation of vaginal bleeding. Patient states that over the past 3 days she has had heavy bleeding that she likens to her menstrual cycle, but she has not had her cycle for 5 years after her hysterectomy. She saw her PERCUSSION TUNER yesterday and had an exam, states that they commented there was a large amount of blood in her vaginal vault but they were unable to find the source of the bleed. She was placed on vaginal estrogen cream and told to come to the ED if she is worse. Patient states that she is having pelvic cramping, continued vaginal bleeding, back pain and dysuria. She denies vigorous intercourse. No fevers, chills, nausea, vomiting. Related Data Home Medications Medication Instructions Recorded Confirmed buspirone 15 mg tablet 15 mg PO BID 03/11/21 03/21/21 cetirizine 10 mg tablet (Zyrtec) 10 mg PO DAILY 03/11/21 03/21/21 citalopram 40 mg tablet 40 mg PO DAILY 03/11/21 03/21/21 estradiol 1 mg tablet 1 mg PO DAILY 03/11/21 03/21/21 zolpidem 5 mg tablet 5 mg PO HS 03/11/21 03/21/21 lisinopril 5 mg tablet tablet 04/05/22 ltxgwltsimyq-Wc-ledi-minerals 18 tablet PO 04/05/22 mg-0.4 mg tablet omeprazole 10 mg capsule,delayed 10 mg PO DAILY 04/05/22 04/05/22 release Allergies Allergy/AdvReac Type Severity Reaction Status Date / Time erythromycin base Allergy Intermediate Hives Verified 11/06/22 10:44 Sulfa (Sulfonamide Allergy Intermediate Hives Verified 11/06/22 10:44 Antibiotics) Polzfme-SYH-McB Reductase Allergy Muscle Verified 11/06/22 10:44 Inhibitor Spasms [Ebtpdtp-Kmt-Mcs Reductase Inhibitor] Review of Systems Review of Systems: Gen: Denies fevers or chills Eyes: Denies eye pain or visual change ENT: Denies congestion Respiratory: Denies shortness of breath or cough CV: Denies chest pain or palpitations GI: Denies abdominal pain nausea, emesis or diarrhea : reports vaginal bleeding and dysuria Musculoskeletal: reports back pain Neuro: Denies numbness, tingling, weakness or focal weakness Skin: Denies rash Except as documented, all other systems reviewed and negative PMFSH Past Medical History Medical History Anxiety Depression GSI (genuine stress incontinence), female Hypertension Seasonal allergies UTI (urinary tract infection) due to Enterococcus Surgical History Surgical History H/O: hysterectomy Hx of appendectomy Hx of cholecystectomy Hx of hemorrhoidectomy Social History Social History Smoking packs per day: 1 Smoking cigarettes per day: 20.0 Years smoked: 20 Smoking pack-years: 20.00 Smoking status: Former smoker Tobacco type: cigarettes Additional smoking assessment comments: QUIT 2011 Spiritual care concerns: No Exam Narrative: APPEARANCE: Well appearing, no pain in distress, well-nourished. Head: Normocephalic and atraumatic. EYES: PERRLA/EOMI, conjunctivae clear NOSE: No nasal drainage EARS: External ear normal in appearance THROAT: Oropharynx is clear. Mucous membranes are moist. NECK: Supple. No adenopathy, no masses. RESPIRATORY: Airway patent, respirations nonlabored. Clear to auscultation bilaterally, no rales, rhonchi, wheezing. : scant amount of blood noted in vaginal vault, no brisk bleed or hemorrhage CARDIOVASCULAR: Regular rate and rhythm without murmurs, rubs, or gallops. ABDOMINAL: Normoactive bowel sounds. Soft, nontender, nondistended. No rebound tenderness or guarding. MUSCULOSKELETAL: Extremities are warm and well-perfused. Moves all extremities well. No edema. NEURO: Normal speech. No focal neurologic def
[2022-11-06 10:41] LABS: Appearance Urine Clear (Clear); Bilirubin Urine Negative (Negative); Blood Urine 3+ (Negative); Color Urine Yellow (Yellow); Glucose Urine UA Negative (Negative); Ketones Urine Negative (Negative); Leukocyte Esterase Ur Negative LEU/UL (Negative); Nitrate Urine Negative (Negative); Protein Urine Negative (Negative); Specific Grav Ur >= 1.030 (1.001-1.035); Urobilinogen Urine 0.2 mg/dL (<2.0)
[2022-11-06] MEDS: KETOROLAC 15 MG/ML VIAL (*BKC) IV PUSH (10:45)
[2022-11-06 10:49] LABS: Bacteria Urine Trace /hpf; Mucus Urine Few /lpf; Squamous Epithelial Cell Urine Moderate /hpf (Few); WBC Urine 0-3 /hpf
[2022-11-06 10:50] LABS: Basophils Percent Auto 0.4 % (0.2-1.2); Eosinophils Absolute Auto 0.1 K/mm3 (0-0.3); Eosinophils Percent Auto 1.4 % (0-4.4); Hematocrit 38.7 % (37.0-47.0); Hemoglobin 13.2 g/dL (12.0-15.0); Immature Granulocyte Absolute 0.02 K/mm3 (0.00-0.031); Immature Granulocyte Percent A 0.3 % (0-0.5); Lymphocytes Absolute Auto 2.26 K/mm3 (0.9-3.2); Lymphocytes Percent Auto 32.4 % (18.3-44.2); Mean Corpuscular HGB Conc 34.1 g/dl (32-36); Mean Corpuscular Hemoglobin 29.3 pg (26-34); Mean Corpuscular Volume 85.8 fl (80-100); Mean Platelet Volume 10.1 fl (7.4-10.4); Monocytes Absolute Auto 0.4 K/mm3 (0.1-0.6); Monocytes Percent Auto 5.6 % (2.6-8.5); Neutrophils Absolute Auto 4.2 K/mm3 (1.3-6.7); Neutrophils Percent Auto 59.9 % (45.5-73.1); Platelet Count Result 220 k/mm3 (150-375); Red Blood Count 4.51 M/mm3 (4.2-5.4); Red Cell Distribution Width 12.4 % (11.5-14.5)
[2022-11-06 10:53] LABS: Alanine Aminotransferase 19 U/L (6-35); Albumin Level 4.6 g/dL (3.5-5.1); Alkaline Phosphatase 94 U/L (38-126); Anion Gap 7 mmol/L (8-16); Aspartate Amino Transferase 21 U/L (14-36); Bilirubin,Total 0.7 mg/dL (0.2-1.3); Blood Urea Nitrogen 11 mg/dL (7-17); Calcium 8.6 mg/dL (8.4-10.2); Carbon Dioxide 22 mmol/L (22-30); Chloride 107 mmol/L (98-107); Estimated Glomerular Filt Rate > 60; Glucose 91 mg/dL (65-110); Potassium 3.9 mmol/L (3.4-5.0); Sodium 136 mmol/L (137-145)
[2022-11-06 10:54] LABS: Prothrombin Time 12.5 Seconds (11.1-14.7)
[2022-11-06 10:55] LABS: Partial Thromboplastin Time 32.3 SECONDS (22.3-36.8)
[2022-11-06 11:03] LABS: Add Urine Microscopic? YES
--- NOTE | 2022-11-06 11:05 | PC.NURSE ---
Report received from Malgorzata SHARMA at this time including history and physical and plan of car
--- NOTE | 2022-11-06 11:45 | PC.NURSE ---
Spoke to [facility]. Patient needs full bladder for ultrasound. Per Ana KENDRICK, patient given water to drink at this time. 1 liter NS also ordered for patient
[2022-11-06] MEDS: SODIUM CHLORIDE 0.9% IV 1,000 ML 999 ML IV CONT (11:54)
== END 2022-11-06 13:48 | disposition home or self-care (01) ==
PROVIDERS: Emergency Provider Physician Assistant; PCP Nurse Practitioner Family
DX: N93.9 Abnormal uterine and vaginal bleeding, unspecified (principal); I10 Essential (primary) hypertension; F41.9 Anxiety disorder, unspecified; F32.A Depression, unspecified; Z90.710 Acquired absence of both cervix and uterus; Z87.440 Personal history of urinary (tract) infections
CPT/HCPCS: 36415; 76856; 80053; 81001; 85025; 85610; 85730; 96361; 96374; 99284; J1885; J7030

== ENCOUNTER 2023-01-05 01:49 | Day surgery (SDC) | payer BC, SELFPAY ==
[2022-12-30 13:06] VITALS: BMI 53.1
--- NOTE | 2022-12-30 13:10 | PC.NURSE ---
Report to the Outpatient Waiting Room, entrance under the green pavilion located off [facility], at time 1130 on date 01/05/23. Planned Procedure Time: 1330. Time changes happen often and if your time is changed the preop area will call you the afternoon before. - You and your visitor will be asked to self-screen and do not enter if you have any COVID symptoms. - A mask is optional within the hospital at this time. Patients may have clear liquids (water, carbonated beverages, clear teas, apple juice) until 3 hours prior to surgery with a maximum of 20 ounces. - No food from midnight until time of surgery Take the following medications with a SIP of water the morning of surgery: WELLBUTRIN, BUSPIRONE, CITALOPRAM DO NOT STOP ANY OF YOUR OTHER PRESCRIPTION MEDICATIONS PRIOR TO SURGERY EXCEPT THE FOLLOWING Medications to discontinue per physician: VITAMINS/SUPPLEMENTS Date to take last dose: 01/01/23 Please no make-up, nail icelandic, hairspray, perfume, deodorant, or body powder the day of surgery. No jewelry (including any body piercings) or valuables the day of surgery, leave them at home. Please take a shower or bath the night before, or the morning of, surgery with an antibacterial soap. Wear comfortable, loose fitting clothing. - Jewelry must be removed prior to entering the operating room. Rings and piercings that are not removed may be cut off. - The hospital will not accept responsibility for valuables. - Please leave all valuables, including medications, at home the day of surgery. If you are going home after surgery, a licensed bookmobile driver must drive you home. - NO public transportation without another adult if you receive anesthesia. - We recommend that an adult stay with you for 24 hours following discharge. - We also recommend that you do not drive, make important decision, drink alcoholic beverages, or take any drugs that were not prescribed by your health care provider for at least 24 hours after your discharge time. Follow any additional instructions given to you from your surgeon. If you or anyone in your household have experienced Covid symptoms in the past week, please notify your surgeon or the nurse liaison at the phone number below for possible testing. Telephone instructions given to PT - ABHIJIT BRASHER and asked if any additional questions and then verbalized understanding. Patient advised to call surgeon office or pre surgery nurse liaison [phone] if any additional questions.
--- NOTE | 2023-01-05 08:13 | WPDHPUPDATE1 ---
History and Physical Update Update Date/Time: 01/05/23 08:13 History and Physical has been reviewed, including an updated exam of the patient. There are NO changes in the patient's condition. Risks, benefits, and alternatives have been discussed and questions answered. Patient agrees to proceed with procedure.
--- NOTE | 2023-01-05 08:14 | PM.HPGS ---
History of Present Illness History of Present Illness Consent: Risks, benefits, and alternatives have been discussed and questions answered. Patient agrees to proceed with procedure. Chief complaint: Granulation tissue Narrative: Mehreen Christianson is a 47 year old female s/p vaginal hysterectomy with bilateral salpingo-oophorectomy in 2017 by previous provider who presented in October with complaint of vaginal bleeding. On examination, the patient was noted to have granulation tear ear deep at the anterior cuff. Silver nitrate was tried on 2 separate occasions without success. It was recommended to undergo exam under anesthesia with removal granulation tissue. Risks of recurrence, bleeding, injury to the surrounding vaginal tissue was reviewed. Patient voiced understanding and agreed to proceed. Review of Systems Review of Systems: not repeated day of surgery; patient states no changes in status PMFSH Past Medical History Medical History (Updated 01/05/23 @ 08:21 by Madhuri Nunez MD) Anxiety Depression GSI (genuine stress incontinence), female Hypertension Seasonal allergies UTI (urinary tract infection) due to Enterococcus Surgical History Surgical History (Updated 01/05/23 @ 08:19 by Madhuri Nunez MD) H/O: hysterectomy TVH-BSO History of bladder suspension procedure transobturator taping 2020 History of laparoscopy for endometriosis Hx of appendectomy Hx of cholecystectomy Hx of hemorrhoidectomy Social History Social History Smoking packs per day: 1 Smoking cigarettes per day: 20.0 Years smoked: 20 Smoking pack-years: 20.00 Smoking status: Former smoker Tobacco type: cigarettes Smoking end date: 09/21/09 Additional smoking assessment comments: QUIT 2011 Alcohol intake: never Substance use: never Substance use type: does not use Living arrangements: with family Spiritual care concerns: No Meds Home Medications and Allergies Home Medications Medication Instructions Recorded Confirmed Type buspirone 15 mg tablet 15 mg PO BID 03/11/21 12/30/22 History cetirizine 10 mg tablet (Zyrtec) 10 mg PO DAILY 03/11/21 12/30/22 History citalopram 40 mg tablet 40 mg PO DAILY 03/11/21 12/30/22 History estradiol 1 mg tablet 1 mg PO DAILY 03/11/21 12/30/22 History zolpidem 5 mg tablet 5 mg PO HS 03/11/21 12/30/22 History lisinopril 5 mg tablet 1 tablet PO DAILY 04/05/22 12/30/22 History xoormeiezqac-Qj-yuns-minerals 18 1 tablet PO DAILY 04/05/22 12/30/22 History mg-0.4 mg tablet omeprazole 10 mg capsule,delayed 10 mg PO DAILY 04/05/22 12/30/22 History release bupropion HCl 300 mg 24 hr tablet, 300 mg PO DAILY 12/30/22 12/30/22 History extended release Allergies Allergy/AdvReac Type Severity Reaction Status Date / Time erythromycin base Allergy Intermediate Hives Verified 12/30/22 13:04 Sulfa (Sulfonamide Allergy Intermediate Hives Verified 12/30/22 13:04 Antibiotics) Bsueffr-VKR-IoJ Reductase Allergy Muscle Verified 12/30/22 13:04 Inhibitor Spasms [Jsbfrfo-Wyz-Vxp Reductase Inhibitor] Exam Const: General: healthy appearing, alert and obese ( BMI of 54) Orientation/consciousness: patient oriented x3 Resp: Effort & Inspection: normal respiratory effort GI: GI Palp: Yes Soft to palpation, No Tenderness to palpation present (GI) and No Palpable mass present : External Female Exam: normal external appearance Speculum Exam - Vagina: vaginal bleeding and other ( using an extra long Stewart speculum granulation tissue anterior) Speculum Exam - Cervix: Cervix absent Bimanual exam- vagina & uterus: uterus absent Neuro: General: patient oriented x3 Assessment and Plan Assessment and plan (1) Granulation tissue: Code(s): L92.9 - Granulomatous disorder of the skin and subcutaneous tissue, unspecified Status: Acute Assessment and Plan: At the vagina
--- NOTE | 2023-01-05 09:02 | WPDANESEPPF ---
Anes - Initial Pre Proc Eval Procedure: Operation Date: 01/05/23 12:30 Proposed Procedures p Excision of Granulation Tissue of Vaginal Cuff - Madhuri Nunez MD Date/Time: 01/05/23 09:02 Surgeon: Madhuri Nunez MD Pre Op Diagnosis: Granulation tissue Patient Data Age: 47 Gender: F Height: 1.6 m Weight: 136.1 kg Allergies Allergy/AdvReac Type Severity Reaction Status Date / Time erythromycin base Allergy Intermediate Hives Verified 01/05/23 11:41 Sulfa (Sulfonamide Allergy Intermediate Hives Verified 01/05/23 11:41 Antibiotics) Apcrfjv-JCA-OrJ Reductase Allergy Muscle Verified 01/05/23 11:41 Inhibitor Spasms [Tgbjgcz-Vzt-Nvw Reductase Inhibitor] Home Medications Medication Instructions Recorded Confirmed Type buspirone 15 mg tablet 15 mg PO BID 03/11/21 01/05/23 History cetirizine 10 mg tablet (Zyrtec) 10 mg PO DAILY 03/11/21 01/05/23 History citalopram 40 mg tablet 40 mg PO DAILY 03/11/21 01/05/23 History estradiol 1 mg tablet 1 mg PO DAILY 03/11/21 01/05/23 History zolpidem 5 mg tablet 5 mg PO HS 03/11/21 01/05/23 History lisinopril 5 mg tablet 1 tablet PO DAILY 04/05/22 01/05/23 History wqlvmkglfeqs-Ei-mxlk-minerals 18 1 tablet PO DAILY 04/05/22 01/05/23 History mg-0.4 mg tablet omeprazole 10 mg capsule,delayed 10 mg PO DAILY 04/05/22 01/05/23 History release bupropion HCl 300 mg 24 hr tablet, 300 mg PO DAILY 12/30/22 01/05/23 History extended release Patient hx anesthesia problems: none Family hx anesthesia problems: none Results Review: All pre-operative results and documents have been reviewed as part of the pre-operative evaluation. [facility] Past Medical History Medical History (Updated 01/05/23 @ 08:21 by Madhuri Nunez MD) Anxiety Depression GSI (genuine stress incontinence), female Hypertension Seasonal allergies UTI (urinary tract infection) due to Enterococcus Surgical History Surgical History (Updated 01/05/23 @ 08:19 by Madhuri Nunez MD) H/O: hysterectomy TVH-BSO History of bladder suspension procedure transobturator taping 2020 History of laparoscopy for endometriosis Hx of appendectomy Hx of cholecystectomy Hx of hemorrhoidectomy Social History Social History Smoking packs per day: 1 Smoking cigarettes per day: 20.0 Years smoked: 20 Smoking pack-years: 20.00 Smoking status: Former smoker Tobacco type: cigarettes Smoking end date: 09/21/09 Additional smoking assessment comments: QUIT 2011 Alcohol intake: never Substance use: never Substance use type: does not use Living arrangements: with family Spiritual care concerns: No Anes - Eval Final PreProcedure Day of Procedure 01/05/23 09:02 Patient weight: super morbidly obese Heart: regular rate and rhythm Lungs: clear to auscultation Airway: Mallampati scale class II Neurological: alert and oriented Last oral intake: >/= 8 hours ASA classification: III Emergent: no Anesthetic plan: proceed Anesthesia type and monitoring: general GIVS and standard monitoring Results Review: All pre-operative results and documents have been reviewed as part of the pre-operative evaluation. Informed Consent: The patient's anesthetic plan and its attendant risks and benefits were discussed with the patient/family/POA. Questions were solicited and answers provided to the satisfaction of the patient/family/POA.
[2023-01-05 11:46] VITALS: BP 134/84; PULSE 77; RESP 20; TEMP 36; O2SAT 99
[2023-01-05] MEDS: LACTATED RINGERS 1,000 ML 30 ML IV CONT (12:03)
[2023-01-05] MEDS: ACETAMINOPHEN 500 MG TABLET 1000 MG PO (12:04)
[2023-01-05] MEDS: LIDO 1%/EPINEPHRINE 1:100,000 50 ML VIAL INFILTRATE (12:26)
--- NOTE | 2023-01-05 12:54 | W.PM.PROC2 ---
Procedure Note - Detailed Date of Procedure 01/05/23 Pre-op Diagnosis Granulation tissue Vaginal bleeding post hysterectomy Post-op Diagnosis Same Procedure Performed cautery of granulation tissue single layer closure of vaginal tissue Surgeon Madhuri Nunez MD Anesthesia MAC and Local Findings very deeply set vaginal cuff; anterior granulation tissue bleeding easily with touch; possible supracervical hysterectomy Description of Procedure The patient is taken to the operating room and placed under anesthesia in the dorsal lithotomy position. The long Graves speculum is used and the area in question is able to be visualized with difficulty. The area is cauterized to remove granulation tissue. Cautery was then used to attempt hemostasis of the underlying tissue. This was not successful. The area was oversewn with 3 0 Vicryl in 3 [id number]-jb-[id number] sutures. Good hemostasis was then noted. While suturing the tissue was noted to be very firm. After the sutures were placed and hemostasis obtained, the speculum was removed. Exam under anesthesia reveals what palpates as a cervix. There is no visible os. The patient is then awakened from anesthesia and taken to recovery in stable condition. Sponge, needle, and instrument counts are correct per the OR staff. Estimated Blood Loss 5 Drains No Packing No Pathology None sent Complications No immediate complications Condition Stable Disposition PACU
[2023-01-05 13:00] VITALS: BP 115/68; PULSE 62; RESP 18; O2SAT 100
[2023-01-05 13:25] VITALS: BP 108/61; PULSE 59; RESP 18; O2SAT 96
[2023-01-05 13:50] VITALS: BP 129/84; PULSE 58; RESP 16; O2SAT 98
[2023-01-05 14:14] VITALS: BP 134/91; PULSE 60; RESP 18
== END 2023-01-05 14:20 | disposition home or self-care (01) ==
PROVIDERS: PCP Nurse Practitioner Family; Visit Provider Obstetrics & Gynecology Gynecology
PROC: (CPT 57200; principal; 2023-01-05 12:30)
DX: L92.9 Granulomatous disorder of the skin and subcutaneous tissue, unspecified (principal); N93.9 Abnormal uterine and vaginal bleeding, unspecified; Z90.710 Acquired absence of both cervix and uterus; I10 Essential (primary) hypertension; F32.A Depression, unspecified; F41.9 Anxiety disorder, unspecified; Z87.891 Personal history of nicotine dependence; E66.01 Morbid (severe) obesity due to excess calories; Z68.43 Body mass index [BMI] 50.0-59.9, adult
CPT/HCPCS: 57200; A9270; J2250; J2704; J3010; J7120

== ENCOUNTER 2023-03-22 11:58 | Emergency (ER) | payer BC, SELFPAY ==
[2023-03-22 12:08] VITALS: BP 120/89; PULSE 89; RESP 16; TEMP 36.2; O2SAT 100
--- NOTE | 2023-03-22 13:05 | ED.EXTPRO ---
HPI - Extremity Problem General Chief complaint: Extremity Problem,Nontraumatic Stated complaint: BILAT KNEE PAIN Time Seen by Provider: 03/22/23 13:05 Source: patient, RN notes reviewed and old records reviewed Mode of arrival: ambulatory Limitations: no limitations History of Present Illness HPI Narrative: 47 year old female who presents to express care with complaints of bilateral knee pain with right knee worse.for 1 month duration. Patient reports that she has been exercising on treadmill and using elliptical machine in process of trying to loose weight and is taking Semaglutide injections. Patient does report that she had some Achilles tendonitis about 3 months ago. Patient offered x-ray films of knees as baseline wants to wait at this time.She reports that her knees hurt worse at night and is mainly anterior aspect of knees below knee caps bilaterally. Patient reports that she has been using Voltaren ointment to her knees and taking Diclofenac daily as ordered. with pain not improving and has used ice and heat. MD Complaint: other (bilateral knee pain) Onset (ago): month(s) (1) Location: other (bilateral right > left) Severity scale (1-10): 3 Related Data Home Medications Medication Instructions Recorded Confirmed buspirone 15 mg tablet 15 mg PO BID 03/11/21 03/22/23 cetirizine 10 mg tablet (Zyrtec) 10 mg PO DAILY 03/11/21 03/22/23 estradiol 1 mg tablet 1 mg PO DAILY 03/11/21 03/22/23 zolpidem 5 mg tablet 5 mg PO HS 03/11/21 03/22/23 lisinopril 5 mg tablet 1 tablet PO DAILY 04/05/22 03/22/23 lnlefghcneye-Xv-krkr-minerals 18 1 tablet PO DAILY 04/05/22 03/22/23 mg-0.4 mg tablet omeprazole 10 mg capsule,delayed 10 mg PO DAILY 04/05/22 03/22/23 release bupropion HCl 300 mg 24 hr tablet, 300 mg PO DAILY 12/30/22 03/22/23 extended release diclofenac sodium 75 mg 75 mg PO BID 03/03/23 03/22/23 tablet,delayed release escitalopram oxalate 10 mg tablet 10 mg PO DAILY 03/03/23 03/22/23 estradiol 0.01% (0.1 mg/gram) 1 g vaginal 2XW 03/03/23 03/22/23 vaginal cream magnesium 250 mg tablet 250 mg PO DAILY 03/03/23 03/22/23 semaglutide (weight loss) 0.25 0.25 mg subcut WEEKLY 03/03/23 03/22/23 mg/0.5 mL subcutaneous pen injector (Wegovy) Allergies Allergy/AdvReac Type Severity Reaction Status Date / Time erythromycin base Allergy Intermediate Hives Verified 03/22/23 12:11 Sulfa (Sulfonamide Allergy Intermediate Hives Verified 03/22/23 12:11 Antibiotics) Zaquzpi-AXB-OxF Reductase Allergy Muscle Verified 03/22/23 12:11 Inhibitor Spasms [Xmmfftx-Afw-Ons Reductase Inhibitor] Review of Systems Review of Systems: CONSTITUTIONAL: Denies fever, chills, or sweats. EYES: Denies visual changes, redness, or discharge. ENT: Denies rhinorrhea, congestion, sore throat, or otalgia. CARDIOVASCULAR: Denies chest pain, palpitations, or edema. RESPIRATORY: Denies cough or dyspnea. GASTROINTESTINAL: Denies abdominal pain, nausea, vomiting, or diarrhea. GENITOURINARY: Denies dysuria or hematuria. SKIN: Denies rash or itching. MUSCULOSKELETAL: Denies back pain,positive for bilateral knee pain , or myalgia. NEUROLOGIC: Denies headache, numbness, or weakness. PSYCHIATRIC: positive for anxiety or depression. All systems reviewed & are unremarkable except as noted in HPI and below PMFSH Past Medical History Medical History Achilles tendinitis Anxiety Depression GSI (genuine stress incontinence), female Hypertension Obesity Post-menopausal bleeding Seasonal allergies UTI (urinary tract infection) due to Enterococcus Surgical History Surgical History H/O: hysterectomy total laparoscopic hysterectomy with BSO History of bladder suspension procedure transobturator taping 2020 History of gynecological procedure (01/05/23) cautery of granulation tissue single layer closure of vaginal tissue/ vaginal
== END 2023-03-22 13:27 | disposition home or self-care (01) ==
PROVIDERS: Emergency Provider Registered Nurse; PCP Nurse Practitioner Family
DX: M25.562 Pain in left knee (principal); M25.561 Pain in right knee; Z87.891 Personal history of nicotine dependence; I10 Essential (primary) hypertension; E66.9 Obesity, unspecified; Z68.43 Body mass index [BMI] 50.0-59.9, adult; F41.9 Anxiety disorder, unspecified; F32.A Depression, unspecified
CPT/HCPCS: 99213; G0463

== ENCOUNTER 2023-05-27 08:03 | Emergency (ER) | payer BC, SELFPAY ==
[2023-05-27 08:13] VITALS: BP 135/87; PULSE 79; RESP 16; TEMP 36.7; O2SAT 100
--- NOTE | 2023-05-27 08:18 | ED.FEMALEGU ---
HPI - Female Genitourinary General Chief complaint: Urogenital-Female Stated complaint: UTI SYMPTOMS Time Seen by Provider: 05/27/23 08:28 Source: patient and RN notes reviewed Mode of arrival: ambulatory Limitations: no limitations History of Present Illness HPI Narrative: 47-year-old female presents with concern for urine urgency, frequency, small amounts of urine, dysuria. She reports symptoms started yesterday. Reports she had a gynecological procedure 2 days ago. She denies fever, aches, nausea, vomiting, back pain, abdominal pain, chills. MD elicited complaint: UTI Related Data Home Medications Medication Instructions Recorded Confirmed buspirone 15 mg tablet 15 mg PO BID 03/11/21 05/27/23 cetirizine 10 mg tablet (Zyrtec) 10 mg PO DAILY 03/11/21 05/27/23 zolpidem 5 mg tablet 5 mg PO HS 03/11/21 05/27/23 lisinopril 5 mg tablet 1 tablet PO DAILY 04/05/22 05/27/23 omeprazole 10 mg capsule,delayed 10 mg PO DAILY 04/05/22 05/27/23 release bupropion HCl 300 mg 24 hr tablet, 300 mg PO DAILY 12/30/22 05/27/23 extended release escitalopram oxalate 10 mg tablet 10 mg PO DAILY 03/03/23 05/27/23 semaglutide (weight loss) 2.4 2.4 mg subcut WE 05/27/23 05/27/23 mg/0.75 mL subcutaneous pen injector (Wegovy) Allergies Allergy/AdvReac Type Severity Reaction Status Date / Time erythromycin base Allergy Intermediate Hives Verified 05/27/23 08:31 Sulfa (Sulfonamide Allergy Intermediate Hives Verified 05/27/23 08:31 Antibiotics) [place]-HQG-AtA Reductase Allergy Muscle Verified 05/27/23 08:31 Inhibitor Spasms [Axvxuhh-Lcm-Dsr Reductase Inhibitor] Review of Systems Review of Systems: CONSTITUTIONAL: Denies malaise, chills, sweats, or fever. CARDIOVASCULAR: Denies chest pain, palpitations, or edema. RESPIRATORY: Denies cough or dyspnea. GASTROINTESTINAL: Denies abdominal pain, nausea, vomiting, diarrhea GENITOURINARY: Reports dysuria, frequency, urgency, skin hematuria. Denies suprapubic pressure, flank pain SKIN: Denies rash or itching. MUSCULOSKELETAL: Denies back pain or myalgia. All systems reviewed & are unremarkable except as noted in HPI and below PMFSH Past Medical History Medical History Achilles tendinitis Anxiety Depression GSI (genuine stress incontinence), female Hypertension Obesity Post-menopausal bleeding Seasonal allergies UTI (urinary tract infection) due to Enterococcus Surgical History Surgical History H/O: hysterectomy total laparoscopic hysterectomy with BSO History of bladder suspension procedure transobturator taping 2020 History of gynecological procedure (01/05/23) cautery of granulation tissue single layer closure of vaginal tissue/ vaginal bleeding post hysterectomy History of laparoscopy for endometriosis Hx of appendectomy Hx of cholecystectomy Hx of hemorrhoidectomy Family History Family History Mother Hypertension Grandparent Skin cancer paternal grandmother Social History Social History Smoking packs per day: 1 Smoking cigarettes per day: 20.0 Years smoked: 20 Smoking pack-years: 20.00 Smoking status: Former smoker Tobacco type: cigarettes Smoking end date: 09/21/09 Additional smoking assessment comments: QUIT 2011 Alcohol intake: never Substance use: never Substance use type: does not use Lack of Transportation: No Lack of Food: Never True Current Housing: I Have Housing Concerned About Future Housing: No Difficulty Paying Gas/Electric Bills: No Difficulty Paying for Meds: No Currently Unemployed: No Education: Master's Degree or Higher Difficulty w/ Childcare or Family Care: No Living arrangements: with family Additional living arrangements comments:
== END 2023-05-27 08:36 | disposition home or self-care (01) ==
PROVIDERS: Emergency Provider Nurse Practitioner; PCP Nurse Practitioner
DX: N39.0 Urinary tract infection, site not specified (principal); I10 Essential (primary) hypertension; E66.9 Obesity, unspecified; Z68.42 Body mass index [BMI] 45.0-49.9, adult; Z87.891 Personal history of nicotine dependence
CPT/HCPCS: 81003; 87086; 99213; G0463

== ENCOUNTER 2024-03-10 12:08 | Outpatient (CLI) | payer BC, SELFPAY ==
--- NOTE | ~2024-03-10 | MM_ITS ---
EXAMINATION: MM screening marci BI w yvette HISTORY: Screening TECHNIQUE: Craniocaudal and mediolateral oblique 3-D tomosynthesis images were obtained and synthetic 2-D images were generated. CAD analysis was submitted and interpreted. COMPARISON: Comparison to multiple prior studies sequentially, with oldest reviewed study dated 10/2017. BREAST PARENCHYMAL COMPOSITION: Dense: The breasts are heterogeneously dense, which may obscure small masses FINDINGS: There is no evidence of suspicious mass, calcification, or architectural distortion to sugg est malignancy in either breast. There has been no suspicious interval change. IMPRESSION: 1. No mammographic evidence of malignancy. 2. Recommend routine screening mammography in one year. BI-RADS Category 1: Negative Reviewed, dictated and finalized at location B.
== END 2024-03-10 12:09 ==
LOC: MICIMG 12:09
PROVIDERS: PCP Nurse Practitioner; Visit Provider Nurse Practitioner
DX: Z12.31 Encounter for screening mammogram for malignant neoplasm of breast (principal)
CPT/HCPCS: 77063; 77067

== ENCOUNTER 2025-03-17 10:18 | Outpatient (CLI) | payer BC, SELFPAY ==
--- NOTE | ~2025-03-17 | MM_ITS ---
EXAMINATION: MM screening marci BI w yvette HISTORY: Screening mammogram TECHNIQUE: Craniocaudal and mediolateral oblique 3-D tomosynthesis images were obtained and synthetic 2-D images were generated. CAD analysis was submitted and interpreted. COMPARISON: No prior mammogram is available for comparison at this institution. BREAST PARENCHYMAL COMPOSITION:Not Dense. There are scattered areas of fibroglandular density. FINDINGS: No suspicious mass, calcification, or architectural distortion are identified in either dirk ast to suggest malignancy. There has been no suspicious interval change. IMPRESSION: No mammographic evidence of malignancy. Recommend routine screening mammography in one year. BI-RADS Category 1: Negative Reviewed, dictated and finalized at location .
== END 2025-03-17 10:19 | disposition home or self-care (01) ==
LOC: MICIMG 10:19
PROVIDERS: PCP Nurse Practitioner; Visit Provider Nurse Practitioner
DX: Z12.31 Encounter for screening mammogram for malignant neoplasm of breast (principal)
CPT/HCPCS: 77063; 77067